=== PATIENT | male | born 1970 | race Asian ===

== ENCOUNTER 2019-04-20 12:04 | Emergency (ER) | payer MEDICARE, MEDICAID ==
[~2019-04-20] VITALS: Ht 172.7 cm; Wt 68.0 kg
--- NOTE | 2019-04-20 12:22 | NUR ---
Pt is awake, alert and oriented. Pt states he did not have a seizure, states he was "just sleepy".
[2019-04-20] MEDS ORDERED: ENAL10TA PO (12:29)
[2019-04-20] MEDS ORDERED: ATOR40TA PO (12:29)
[2019-04-20] MEDS ORDERED: ASPI81TA31 PO (12:29)
[2019-04-20] MEDS ORDERED: DIPH25TA23 PO (12:29)
[2019-04-20] MEDS ORDERED: MULT1TAB73 PO (12:29)
[2019-04-20] MEDS ORDERED: CARV12.52 PO (12:29)
[2019-04-20] MEDS ORDERED: PANT40TA4 PO (12:29)
[2019-04-20] MEDS ORDERED: EVOL140S SQ (12:29)
[2019-04-20] MEDS ORDERED: FENO160T PO (12:29)
[2019-04-20] MEDS ORDERED: LEVE500T9 PO (12:29)
[2019-04-20] MEDS ORDERED: CLOP75TA15 PO (12:29)
[2019-04-20 12:47] LABS: BASOPHILS % (AUTO) 0.5 % (0.0-2.0); EOSINOPHILS # (AUTO) 0.2 K/uL (0.0-0.7); EOSINOPHILS % (AUTO) 2.1 % (0.0-7.0); HEMATOCRIT 37.5 % (36.7-47.1); HEMOGLOBIN 12.8 g/dL (12.5-16.3); LYMPHOCYTES # (AUTO) 1.5 K/uL (20.0-40.0); LYMPHOCYTES % (AUTO) 19.9 % (20.5-51.5); MEAN CORPUSCULAR HEMOGLOBIN 31.8 uug (23.8-33.4); MEAN CORPUSCULAR HGB CONC 34 g/dL (32.5-36.3); MEAN CORPUSCULAR VOLUME 93.3 fL (73.0-96.2); MONOCYTES # (AUTO) 0.7 K/uL (2.0-10.0); MONOCYTES % (AUTO) 8.7 % (0.0-11.0); NEUTROPHILS # (AUTO) 5.4 K/uL (1.8-8.9); NEUTROPHILS % (AUTO) 68.8 % (38.5-71.5); PLATELET COUNT (AUTO) 344 K/uL (152-348); RED BLOOD CELL COUNT(AUTO) 4.02 MIL/uL (4.06-5.63); WHITE BLOOD COUNT (AUTO) 7.8 K/uL (3.6-10.2)
--- NOTE | 2019-04-20 12:49 | NUR ---
ASSUMED CARE OF PT FROM OMI Linares RN. PT RESTING IN BED AT THIS TIME. NAD. FAMILY AT BEDSIDE.
[2019-04-20 12:56] LABS: CREATININE 1.2 mg/dL (0.6-1.3); POTASSIUM 3.6 mmol/L (3.5-5.1)
[2019-04-20 13:02] LABS: BILIRUBIN,DIRECT 0.1 mg/dL (0.0-0.2); BILIRUBIN,TOTAL 0.4 mg/dL (0.2-1.0)
[2019-04-20] MEDS: LEVETIRACETAM 250 MG TABLET PO ONE (13:08)
[2019-04-20] MEDS ORDERED: LEVETIRACETAM 250 MG TABLET ONE (13:11)
--- NOTE | 2019-04-20 13:20 | NUR ---
Patient discharged to home in stable conditon. Written and verbal after care instructions given. Patient verbalizes understanding of instructions. ALL BELONGINGS W/ PT. PT SELF-AMBULATED W/O DIFFICULTY. 20G IV ACCESS IN L HAND REMOVED PRIOR TO D/C - INNER CANNULA INTACT. PT WILL BE DRIVEN HOME BY BROTHER IN PRIVATE VEHICLE.
[2019-04-20 13:22] VITALS: BP 115/72
== END 2019-04-20 13:22 | disposition home or self-care (01) ==
LOC: ER 12:10
DX: R56.9 Unspecified convulsions (principal); I25.2 Old myocardial infarction; I25.10 Atherosclerotic heart disease of native coronary artery without angina pectoris; E78.5 Hyperlipidemia, unspecified; K21.9 Gastro-esophageal reflux disease without esophagitis; F32.9 Major depressive disorder, single episode, unspecified; Z79.82 Long term (current) use of aspirin; Z79.01 Long term (current) use of anticoagulants; Z79.899 Other long term (current) drug therapy
CPT/HCPCS: 36415; 70030-TC; 71045; 85025; 85730; 93005; A4663